=== PATIENT | female | born 1970 | race American Indian/Alaskan Native ===

== ENCOUNTER 2021-04-04 23:03 | Emergency (ER) | payer BC, MEDICAID ==
[2021-04-04 23:17] VITALS: BP 140/69
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
== END 2021-04-05 01:03 | disposition home or self-care (01) ==
LOC: ED 23:03
DX: M54.2 Cervicalgia (principal); Z90.710 Acquired absence of both cervix and uterus; I10 Essential (primary) hypertension
CPT/HCPCS: 72040; 99283